=== PATIENT | female | born 1990 | race Caucasian/White ===

== ENCOUNTER 2016-10-10 13:13 | Emergency (ER) | payer BC ==
[2016-10-10 15:40] VITALS: BP 123/75
--- NOTE | 2016-10-10 16:45 | UC ---
Skin Complaint HPI - HPI Summary HPI Summary: The patient comes in today for: 1. "Bug bites." Onset: 2 days ago. Palliative/provocative: Touch makes the hurt more. Coolness is soothing. Quality: Painful, stinging. Region: legs Severity: 4/10 Associated symptoms: Home treatment: Anti-itch cream helps. Event: Some "bug" was seen at these lesions. 2. Cough Onset: 2 days Palliative/provocative: Drinking water helps. Quality: Dry Region: Lungs. Severity: Associated symptoms: Cough production: None Rhinitis: Present--yellow discharge with no sinus pressure. Fevers: None. * * - History of Current Complaint Chief Complaint: [facility] Time Seen by Provider: 10/10/16 16:36 Stated Complaint: BUG BITES Hx Obtained From: Patient Hx Last Menstrual Period: 4 wks ago - Allergy/Home Medications Allergies/Adverse Reactions: Allergies Allergy/AdvReac Type Severity Reaction Status Date / Time No Known Allergies Allergy Verified 10/10/16 15:40 Home Medications: Home Medications Insulin LISPRO* [HumaLOG*] 10/10/16 [History] Review of Systems Skin: Rash Eyes: Negative ENT: Nasal Discharge Respiratory: Cough Cardiovascular: Negative Gastrointestinal: Negative Genitourinary: Negative All Other Systems Reviewed And Are Negative: Yes PMH/Surg Hx/FS Hx/Imm Hx Previously Healthy: No Endocrine History Of: Reports: Diabetes - Type I Denies: Thyroid Disease, Hyperthyroidism, Hypothyroidism, Dyslipidemia Cardiovascular History Of: Denies: Cardiac Disorders, Hypertension, Pacemaker/ICD, Myocardial Infarction , Congestive Heart Failure, Atrial Fibrillation, Deep Vein Thrombosis, Bleeding Disorders Respiratory History Of: Denies: COPD, Asthma, Bronchitis, Pneumonia, Pulmonary Embolism GI/ History Of: Reports: Kidney Stones - November 2015 kidney stone. Denies: Gastroesophageal Reflux, Ulcer, Gastrointestinal Bleed, Gall Bladder Disease, Diverticulitis, Renal Disease, Urosepsis Neurological History Of: Denies: TIA, CVA, Dementia, Seizures, Migraine Psychological History Of: Denies: Anxiety, Depression, Bipolar Disorder, Schizophrenia, Post Traumatic Stress Disorder Cancer History Of: Denies: Lung Cancer, Colorectal Cancer, Breast Cancer, Prostate Cancer, Cervical Cancer Other History Of: Negative For: HIV, Hepatitis B, Hepatitis C, Anticoagulant Therapy - Surgical History Surgical History: None - Family History Known Family History: Positive: Hypertension Negative: Cardiac Disease - Social History Occupation: Employed Full-time Alcohol Use: None Substance Use Type: None Smoking Status (MU): Never Smoked Tobacco - Immunization History Most Recent Tetanus Shot: less then 10 yrs Physical Exam Triage Information Reviewed: Yes Appearance: Well-Appearing, No Pain Distress, Well-Nourished Vital Signs: Initial Vital Signs Temp 97.5 F 10/10/16 15:35 Pulse 88 10/10/16 15:35 Resp 12 10/10/16 15:35 BP 123/75 10/10/16 15:35 Pulse Ox 100 10/10/16 15:35 Vital Signs Reviewed: Yes Eyes: Positive: Conjunctiva Clear. Negative: Discharge ENT: Positive: Hearing grossly normal, Other: - Ears: Canals free from erythema or edema.. Negative: Pharyngeal erythema, Nasal congestion, Nasal drainage, Tonsillar swelling, Tonsillar exudate Dental: Negative: Gross Decay/Caries @, Dental Fracture @ Neck: Positive: Supple, Nontender, No Lymphadenopathy. Negative: Nuchal Rigidity Respiratory: Positive: Lungs clear, No respiratory distress, No accessory muscle use. Negative: Rhonchi, Wheezing Cardiovascular: Positive: RRR, No Murmur Abdomen Description: Positive: Nontender, No Organomegaly, Soft. Negative: Distended, Guarding Musculoskeletal: Positive: Strength Intact, ROM Intact, No Edema Neurological: Positive: Alert, Muscle Tone Normal Psychological: Positive: Age Appropriate Behavior, Consolable Skin: Positive: Other - The patient has multiple erythematous/indurated lesions : Right lower outer leg: three lesions present--one is 1 x 2 cm, the second two other lesions are 1 x 1 cm. Right inner le x 1 cm Left inner leg ( ankle): 1 x 1 cm Left upper, inner thigh: 7 x 5 cm Course/Dx - Course Course Of Treatment: Patient was told that I am concerned that there is infection in her lesions and suggested antibiotics to which she agreed. - Differential Diagnoses - Skin Complaint Differential Diagnoses: Abscess, Cellulitis, Urticaria - Diagnoses Provider Diagnoses: Cellulitis of the right and left leg. Discharge - Discharge Plan Condition: Stable Disposition: HOME Patient Education Materials: Cellulitis (ED) Referrals: Jenny Apple [Primary Care Provider] - 3 Days (Please see your primary care provider in about 3 days to see how well you are doing. If you get worse, please be seen sooner through your primary care provider us or the ER. If you can't get in timely, you can come in to see us.)
== END 2016-10-10 17:15 | disposition home or self-care (01) ==
LOC: UCEAST 13:13
DX: L03.116 Cellulitis of left lower limb (principal); L03.115 Cellulitis of right lower limb; R05 Cough; E10.9 Type 1 diabetes mellitus without complications; Z79.4 Long term (current) use of insulin
CPT/HCPCS: 99212; G0463